=== PATIENT | female | born 1935 | race African-American/Black ===

== ENCOUNTER 2019-12-11 22:34 | Inpatient (IN) | payer MEDICARE, BC ==
[~2019-12-11] VITALS: Ht 170.2 cm; Wt 90.7 kg
[2019-12-11 22:10] VITALS: BP 148/78
[~2019-12-11 22:34] MED LIST: ASPI-1497 PO; ATEN50TA PO; ATOR20TA MT; AZOPT EACHEYE; CELE100C PO; CETI-114 PO; COMBIGAN EACHEYE; LORA10TA7 PO; MIRA50TA MT; MOME13HF2 INH; SERT50TA MT; XALAO EACHEYE
[2019-12-11 23:00] VITALS: BP 148/73
[2019-12-11] MEDS ORDERED: MORPHINE SULFATE 2 MG/ML CPJ (NOT FOR IM USE) IV PRN (23:30)
[2019-12-11] MEDS ORDERED: IPRATROPIUM/ALBUTEROL 0.5-3(2.5)MG/3ML NEB HHN PRN (23:30)
[2019-12-11] MEDS ORDERED: ACETAMINOPHEN 325MG TABLET PO PRN (23:30)
[2019-12-11] MEDS ORDERED: ONDANSETRON HCL 4MG/2ML INJ IV PRN (23:30)
[2019-12-11] MEDS ORDERED: DOCUSATE SODIUM 250MG CAPSULE PO PRN (23:30)
[2019-12-11] MEDS ORDERED: NICARDIPINE 100 MG in SODIUM CHLORIDE 0.9% 60 ML IV PRN (23:30)
[2019-12-11] MEDS ORDERED: MAGNESIUM/ALUMINUM HYDROXIDE/SIMETHICONE 30ML UDC PO PRN (23:30)
[2019-12-11] MEDS ORDERED: DIPHENHYDRAMINE 50MG/ML VIAL IV PRN (23:30)
[2019-12-11] MEDS ORDERED: CLONIDINE 0.1MG TABLET PO PRN (23:30)
[2019-12-12] MEDS: IPRATROPIUM/ALBUTEROL 0.5-3(2.5)MG/3ML NEB HHN SCH ×3 (07:27→20:32)
[2019-12-12] MEDS: HYDRALAZINE HCL 25MG TABLET PO SCH ×3 (08:00→21:28)
[2019-12-12 08:11] VITALS: BP 153/84
[2019-12-12] MEDS: LABETALOL HCL 200MG TABLET PO SCH ×2 (08:37→21:27)
[2019-12-12] MEDS: AMLODIPINE 10MG TABLET PO SCH (08:38)
[2019-12-12] MEDS ORDERED: HYDROCODONE/ACETAMINOPHEN 5/325MG TABLET PO PRN (14:15)
[2019-12-12] MEDS ORDERED: NA PHOS,M-B/NA PHOS,DI-BA ENEMA 118ML PR PRN (14:15)
[2019-12-12] MEDS ORDERED: BISACODYL 5MG TABLET PO PRN (14:15)
[2019-12-12] MEDS: DOCUSATE SODIUM 100MG CAPSULE PO SCH (17:07)
[2019-12-12 20:00] VITALS: BP 154/74
[2019-12-12] MEDS: ATORVASTATIN CALCIUM 20MG TABLET PO SCH (21:27)
[2019-12-13] MEDS: IPRATROPIUM/ALBUTEROL 0.5-3(2.5)MG/3ML NEB HHN SCH ×4 (02:08→22:07)
[2019-12-13] MEDS: HYDRALAZINE HCL 25MG TABLET PO SCH ×3 (06:10→21:12)
[2019-12-13 06:46] LABS: HEMATOCRIT. 36.3 % (36.0-48.0); HEMOGLOBIN. 12.4 g/dL (12.0-16.0); MEAN CORPUSCULAR HEMOGLOBIN 29.5 pg (28.0-32.0); MEAN CORPUSCULAR VOLUME 86.3 fL (81.0-99.0); MEAN PLATELET VOLUME 9.4 fl (7.4-10.4); PLATELET 198 x1000/uL (130-400); RED CELL DISTRIBUTION WIDTH 15.5 % (11.6-14.6)
[2019-12-13 06:59] LABS: CHLORIDE 103 mEq/L (98-107)
[2019-12-13 08:10] VITALS: BP 154/82
[2019-12-13] MEDS: DOCUSATE SODIUM 100MG CAPSULE PO SCH ×2 (08:38→16:28)
[2019-12-13] MEDS: LABETALOL HCL 200MG TABLET PO SCH ×2 (08:38→21:12)
[2019-12-13] MEDS: AMLODIPINE 10MG TABLET PO SCH (08:39)
[2019-12-13 13:32] LABS: PLATELET ESTIMATE NORMAL
[2019-12-13 20:00] VITALS: BP 151/59
[2019-12-13] MEDS: ACETAMINOPHEN 325MG TABLET PO PRN (20:16)
[2019-12-13] MEDS: ATORVASTATIN CALCIUM 20MG TABLET PO SCH (21:12)
[2019-12-14 01:24] LABS: CLARITY URINE CLOUDY (CLEAR); COLOR URINE YELLOW (YELLOW); KETONES URINE NEGATIVE (NEGATIVE); LEUKOCYTE ESTERASE URINE TRACE (NEGATIVE); NITRITE URINE NEGATIVE (NEGATIVE); OCCULT BLOOD URINE NEGATIVE (NEGATIVE); PH URINE 5.5 (4.5-8.0); PROTEIN URINE TRACE (NEGATIVE); SPECIFIC GRAVITY URINE 1.012 (1.005-1.030); UROBILINOGEN URINE 0.2 E.U./dL (0.2-1.0)
[2019-12-14] MEDS: IPRATROPIUM/ALBUTEROL 0.5-3(2.5)MG/3ML NEB HHN SCH ×2 (04:49→21:00)
[2019-12-14] MEDS: HYDRALAZINE HCL 25MG TABLET PO SCH ×3 (05:42→21:11)
[2019-12-14] MEDS: ACETAMINOPHEN 325MG TABLET PO PRN ×2 (05:42→12:53)
[2019-12-14 08:00] VITALS: BP 160/97
[2019-12-14] MEDS: DOCUSATE SODIUM 100MG CAPSULE PO SCH ×2 (09:12→17:27)
[2019-12-14] MEDS: AMLODIPINE 10MG TABLET PO SCH (09:13)
[2019-12-14] MEDS: LABETALOL HCL 200MG TABLET PO SCH ×2 (09:13→21:11)
[2019-12-14] MEDS: NITROFURANTOIN 100MG M/M CAPSULE PO SCH ×2 (12:08→21:10)
[2019-12-14] MEDS ORDERED: BISACODYL 10MG SUPP PR PRN (15:00)
[2019-12-14] MEDS ORDERED: NA PHOS,M-B/NA PHOS,DI-BA ENEMA 118ML PR PRN (15:00)
[2019-12-14] MEDS ORDERED: TRAMADOL 50MG TABLET PO PRN (15:00)
[2019-12-14 20:00] VITALS: BP 150/90
[2019-12-14] MEDS: ATORVASTATIN CALCIUM 20MG TABLET PO SCH (21:10)
[2019-12-15] MEDS: IPRATROPIUM/ALBUTEROL 0.5-3(2.5)MG/3ML NEB HHN SCH ×4 (03:20→20:22)
[2019-12-15] MEDS: HYDRALAZINE HCL 25MG TABLET PO SCH ×3 (06:29→21:36)
[2019-12-15 07:22] LABS: BASOPHILS % 0.2 % (0.0-2.0); EOSINOPHILS % 3.2 % (0.0-5.0); HEMATOCRIT. 32.7 % (36.0-48.0); HEMOGLOBIN. 11.1 g/dL (12.0-16.0); LYMPHOCYTES % 8.8 % (20.0-50.0); MEAN CORPUSCULAR HEMOGLOBIN 29.4 pg (28.0-32.0); MEAN CORPUSCULAR VOLUME 86.5 fL (81.0-99.0); MEAN PLATELET VOLUME 8.7 fl (7.4-10.4); MONOCYTES % 8.6 % (2.0-8.0); NEUTROPHILS % 79.2 % (40.0-76.0); PLATELET 210 x1000/uL (130-400); RED BLOOD CELL COUNT 3.78 mill/uL (4.2-5.4); RED CELL DISTRIBUTION WIDTH 15.4 % (11.6-14.6)
[2019-12-15 07:48] LABS: CHLORIDE 106 mEq/L (98-107)
[2019-12-15 08:00] VITALS: BP 149/81
[2019-12-15] MEDS: LABETALOL HCL 200MG TABLET PO SCH ×2 (08:29→21:35)
[2019-12-15] MEDS: NITROFURANTOIN 100MG M/M CAPSULE PO SCH ×2 (08:29→21:35)
[2019-12-15] MEDS: AMLODIPINE 10MG TABLET PO SCH (08:30)
[2019-12-15] MEDS: DOCUSATE SODIUM 100MG CAPSULE PO SCH ×2 (08:30→16:43)
[2019-12-15 20:00] VITALS: BP 153/87
[2019-12-15] MEDS: GUAIFENESIN 600MG ER TABLET PO SCH (21:35)
[2019-12-15] MEDS: ATORVASTATIN CALCIUM 20MG TABLET PO SCH (21:36)
[2019-12-15] MEDS: ACETAMINOPHEN 325MG TABLET PO PRN (22:27)
[2019-12-16] MEDS: IPRATROPIUM/ALBUTEROL 0.5-3(2.5)MG/3ML NEB HHN SCH ×3 (01:36→19:56)
[2019-12-16] MEDS: HYDRALAZINE HCL 25MG TABLET PO SCH ×3 (05:54→22:43)
[2019-12-16 07:01] LABS: HEMATOCRIT. 36.3 % (36.0-48.0); MEAN CORPUSCULAR HEMOGLOBIN 28.6 pg (28.0-32.0); MEAN CORPUSCULAR VOLUME 86.8 fL (81.0-99.0); MEAN PLATELET VOLUME 8.7 fl (7.4-10.4); PLATELET 208 x1000/uL (130-400); RED BLOOD CELL COUNT 4.18 mill/uL (4.2-5.4)
[2019-12-16 08:15] VITALS: BP 167/85
[2019-12-16 08:20] VITALS: BP 167/85
[2019-12-16 08:22] LABS: CHLORIDE 104 mEq/L (98-107)
[2019-12-16] MEDS: GUAIFENESIN 600MG ER TABLET PO SCH ×2 (09:05→22:42)
[2019-12-16] MEDS: AMLODIPINE 10MG TABLET PO SCH (09:05)
[2019-12-16] MEDS: LABETALOL HCL 200MG TABLET PO SCH ×2 (09:05→22:44)
[2019-12-16] MEDS: DOCUSATE SODIUM 100MG CAPSULE PO SCH ×2 (09:05→17:36)
[2019-12-16] MEDS: NITROFURANTOIN 100MG M/M CAPSULE PO SCH ×2 (09:05→22:43)
[2019-12-16 09:46] LABS: PLATELET ESTIMATE NORMAL
[2019-12-16 13:04] VITALS: BP 151/91
[2019-12-16 20:00] VITALS: BP 154/89
[2019-12-16] MEDS: ATORVASTATIN CALCIUM 20MG TABLET PO SCH (22:42)
[2019-12-17] MEDS: IPRATROPIUM/ALBUTEROL 0.5-3(2.5)MG/3ML NEB HHN SCH ×4 (01:28→23:55)
[2019-12-17] MEDS: HYDRALAZINE HCL 25MG TABLET PO SCH ×3 (07:19→22:06)
[2019-12-17 08:00] VITALS: BP 160/80
[2019-12-17] MEDS: DOCUSATE SODIUM 100MG CAPSULE PO SCH ×2 (09:26→16:58)
[2019-12-17] MEDS: NITROFURANTOIN 100MG M/M CAPSULE PO SCH ×2 (09:26→22:06)
[2019-12-17] MEDS: AMLODIPINE 10MG TABLET PO SCH (09:26)
[2019-12-17] MEDS: GUAIFENESIN 600MG ER TABLET PO SCH ×2 (09:26→22:05)
[2019-12-17] MEDS: LABETALOL HCL 200MG TABLET PO SCH ×2 (09:26→22:06)
[2019-12-17 11:37] VITALS: BP 147/91
[2019-12-17] MEDS: ACETAMINOPHEN 325MG TABLET PO PRN (11:41)
[2019-12-17] MEDS: PREDNISONE 20MG TABLET PO SCH (16:59)
[2019-12-17 20:00] VITALS: BP 149/78
[2019-12-17] MEDS: BUDESONIDE 0.5MG/2ML NEB HHN SCH ×3 (20:43→23:55)
[2019-12-17] MEDS: ATORVASTATIN CALCIUM 20MG TABLET PO SCH (22:05)
[2019-12-18] MEDS: HYDRALAZINE HCL 25MG TABLET PO SCH ×3 (06:37→21:28)
[2019-12-18 08:00] VITALS: BP 160/110
[2019-12-18] MEDS: BUDESONIDE 0.5MG/2ML NEB HHN SCH (08:10)
[2019-12-18] MEDS: IPRATROPIUM/ALBUTEROL 0.5-3(2.5)MG/3ML NEB HHN SCH ×3 (08:10→20:50)
[2019-12-18] MEDS: GUAIFENESIN 600MG ER TABLET PO SCH ×2 (09:57→21:24)
[2019-12-18] MEDS: AMLODIPINE 10MG TABLET PO SCH (09:57)
[2019-12-18] MEDS: DOCUSATE SODIUM 100MG CAPSULE PO SCH ×3 (09:57→18:21)
[2019-12-18] MEDS: LABETALOL HCL 200MG TABLET PO SCH ×2 (09:57→21:27)
[2019-12-18] MEDS: NITROFURANTOIN 100MG M/M CAPSULE PO SCH ×2 (09:58→21:23)
[2019-12-18] MEDS: PREDNISONE 20MG TABLET PO SCH ×2 (09:58→18:21)
[2019-12-18 20:00] VITALS: BP 150/75
[2019-12-18] MEDS: LACTULOSE 20G/30ML UDC PO PRN (21:24)
[2019-12-18] MEDS: ATORVASTATIN CALCIUM 20MG TABLET PO SCH (21:24)
[2019-12-19] MEDS: IPRATROPIUM/ALBUTEROL 0.5-3(2.5)MG/3ML NEB HHN SCH ×4 (02:23→22:12)
[2019-12-19] MEDS: HYDRALAZINE HCL 25MG TABLET PO SCH ×3 (06:04→21:36)
[2019-12-19 06:53] LABS: CHLORIDE 106 mEq/L (98-107)
[2019-12-19 07:02] LABS: HEMATOCRIT. 32.6 % (36.0-48.0); HEMOGLOBIN. 11.1 g/dL (12.0-16.0); MEAN CORPUSCULAR HEMOGLOBIN 29.4 pg (28.0-32.0); MEAN CORPUSCULAR VOLUME 86.2 fL (81.0-99.0); MEAN PLATELET VOLUME 8.4 fl (7.4-10.4); PLATELET 213 x1000/uL (130-400); RED BLOOD CELL COUNT 3.78 mill/uL (4.2-5.4); RED CELL DISTRIBUTION WIDTH 15.6 % (11.6-14.6)
[2019-12-19 07:34] LABS: PHOSPHORUS 4.5 mg/dL (2.5-4.9)
[2019-12-19] MEDS: BUDESONIDE 0.5MG/2ML NEB HHN SCH ×2 (07:54→20:00)
[2019-12-19 08:00] VITALS: BP 152/86
[2019-12-19] MEDS: LABETALOL HCL 200MG TABLET PO SCH ×2 (09:08→20:39)
[2019-12-19] MEDS: AMLODIPINE 10MG TABLET PO SCH (09:08)
[2019-12-19] MEDS: DOCUSATE SODIUM 100MG CAPSULE PO SCH ×2 (09:08→17:18)
[2019-12-19] MEDS: NITROFURANTOIN 100MG M/M CAPSULE PO SCH ×2 (09:08→20:39)
[2019-12-19] MEDS: GUAIFENESIN 600MG ER TABLET PO SCH ×2 (09:09→20:39)
[2019-12-19] MEDS: PREDNISONE 20MG TABLET PO SCH ×2 (09:09→17:18)
[2019-12-19 11:54] LABS: PLATELET ESTIMATE NORMAL
[2019-12-19 12:55] VITALS: BP 151/85
[2019-12-19] MEDS ORDERED: LACTULOSE 20G/30ML UDC PO NR (18:45)
[2019-12-19 20:00] VITALS: BP 157/77
[2019-12-19] MEDS: ATORVASTATIN CALCIUM 20MG TABLET PO SCH (20:39)
[2019-12-20] MEDS: IPRATROPIUM/ALBUTEROL 0.5-3(2.5)MG/3ML NEB HHN SCH ×2 (02:00→20:18)
[2019-12-20] MEDS: HYDRALAZINE HCL 25MG TABLET PO SCH ×3 (05:05→21:59)
[2019-12-20 06:13] VITALS: BP 156/63
[2019-12-20] MEDS ORDERED: TRAMADOL 50MG TABLET PO PRN (08:00)
[2019-12-20] MEDS: LABETALOL HCL 200MG TABLET PO SCH ×2 (09:24→20:52)
[2019-12-20] MEDS: PREDNISONE 20MG TABLET PO SCH ×2 (09:24→17:39)
[2019-12-20] MEDS: DOCUSATE SODIUM 100MG CAPSULE PO SCH ×2 (09:24→17:00)
[2019-12-20] MEDS: NITROFURANTOIN 100MG M/M CAPSULE PO SCH ×2 (09:25→20:52)
[2019-12-20] MEDS: AMLODIPINE 10MG TABLET PO SCH (09:25)
[2019-12-20] MEDS: GUAIFENESIN 600MG ER TABLET PO SCH ×2 (09:25→20:51)
[2019-12-20 20:00] VITALS: BP 139/80
[2019-12-20] MEDS: BUDESONIDE 0.5MG/2ML NEB HHN SCH (20:16)
[2019-12-20] MEDS: ATORVASTATIN CALCIUM 20MG TABLET PO SCH (20:51)
[2019-12-21] MEDS: IPRATROPIUM/ALBUTEROL 0.5-3(2.5)MG/3ML NEB HHN SCH ×3 (01:45→12:08)
[2019-12-21] MEDS: GUAIFENESIN 200MG/10ML SUGAR FREE UDC PO PRN ×2 (05:46→22:12)
[2019-12-21] MEDS: HYDRALAZINE HCL 25MG TABLET PO SCH ×3 (05:46→22:14)
[2019-12-21 06:30] LABS: HEMATOCRIT. 33.5 % (36.0-48.0); HEMOGLOBIN. 11.1 g/dL (12.0-16.0); MEAN CORPUSCULAR HEMOGLOBIN 28.4 pg (28.0-32.0); MEAN CORPUSCULAR VOLUME 85.7 fL (81.0-99.0); MEAN PLATELET VOLUME 7.7 fl (7.4-10.4); PLATELET 236 x1000/uL (130-400); RED BLOOD CELL COUNT 3.91 mill/uL (4.2-5.4); RED CELL DISTRIBUTION WIDTH 15.7 % (11.6-14.6)
[2019-12-21 06:42] LABS: CHLORIDE 106 mEq/L (98-107)
[2019-12-21 08:00] VITALS: BP 157/91
[2019-12-21] MEDS: BUDESONIDE 0.5MG/2ML NEB HHN SCH (08:05)
[2019-12-21] MEDS: GUAIFENESIN 600MG ER TABLET PO SCH ×2 (08:38→20:34)
[2019-12-21] MEDS: LABETALOL HCL 200MG TABLET PO SCH ×2 (08:39→20:35)
[2019-12-21] MEDS: DOCUSATE SODIUM 100MG CAPSULE PO SCH ×2 (08:39→17:00)
[2019-12-21] MEDS: AMLODIPINE 10MG TABLET PO SCH (08:39)
[2019-12-21 10:55] LABS: PLATELET ESTIMATE NORMAL
[2019-12-21 20:00] VITALS: BP 140/68
[2019-12-21] MEDS: ATORVASTATIN CALCIUM 20MG TABLET PO SCH (20:34)
[2019-12-22] MEDS: IPRATROPIUM/ALBUTEROL 0.5-3(2.5)MG/3ML NEB HHN SCH ×4 (03:16→21:03)
[2019-12-22] MEDS: GUAIFENESIN 200MG/10ML SUGAR FREE UDC PO PRN (05:20)
[2019-12-22] MEDS: HYDRALAZINE HCL 25MG TABLET PO SCH ×3 (05:21→22:00)
[2019-12-22] MEDS: BUDESONIDE 0.5MG/2ML NEB HHN SCH ×2 (07:52→21:03)
[2019-12-22 08:30] VITALS: BP 111/63
[2019-12-22] MEDS: DOCUSATE SODIUM 100MG CAPSULE PO SCH ×2 (08:50→17:00)
[2019-12-22] MEDS: GUAIFENESIN 600MG ER TABLET PO SCH ×2 (08:51→21:59)
[2019-12-22] MEDS: AMLODIPINE 10MG TABLET PO SCH (08:59)
[2019-12-22] MEDS: LABETALOL HCL 200MG TABLET PO SCH ×2 (08:59→21:59)
[2019-12-22 14:27] VITALS: BP 124/71
[2019-12-22 20:00] VITALS: BP 143/70
[2019-12-22] MEDS: ATORVASTATIN CALCIUM 20MG TABLET PO SCH (21:59)
[2019-12-23] MEDS: IPRATROPIUM/ALBUTEROL 0.5-3(2.5)MG/3ML NEB HHN SCH ×4 (02:26→22:06)
[2019-12-23] MEDS: HYDRALAZINE HCL 25MG TABLET PO SCH ×3 (06:00→21:26)
[2019-12-23 06:51] LABS: BASOPHILS % 0.1 % (0.0-2.0); EOSINOPHILS % 1.6 % (0.0-5.0); HEMATOCRIT. 34.6 % (36.0-48.0); HEMOGLOBIN. 11.5 g/dL (12.0-16.0); LYMPHOCYTES % 15.4 % (20.0-50.0); MEAN CORPUSCULAR HEMOGLOBIN 28.6 pg (28.0-32.0); MEAN CORPUSCULAR VOLUME 86.5 fL (81.0-99.0); MEAN PLATELET VOLUME 8.2 fl (7.4-10.4); MONOCYTES % 9.4 % (2.0-8.0); NEUTROPHILS % 73.5 % (40.0-76.0); PLATELET 243 x1000/uL (130-400); RED BLOOD CELL COUNT 4.01 mill/uL (4.2-5.4); RED CELL DISTRIBUTION WIDTH 15.8 % (11.6-14.6)
[2019-12-23 07:06] LABS: CHLORIDE 106 mEq/L (98-107)
[2019-12-23] MEDS: BUDESONIDE 0.5MG/2ML NEB HHN SCH ×2 (07:29→22:06)
[2019-12-23 08:00] VITALS: BP 114/58
[2019-12-23] MEDS: AMLODIPINE 10MG TABLET PO SCH (08:45)
[2019-12-23] MEDS: LABETALOL HCL 200MG TABLET PO SCH ×2 (08:45→21:26)
[2019-12-23] MEDS: GUAIFENESIN 600MG ER TABLET PO SCH ×2 (08:45→21:26)
[2019-12-23] MEDS: DOCUSATE SODIUM 100MG CAPSULE PO SCH ×3 (14:10→16:50)
[2019-12-23 20:00] VITALS: BP 154/79
[2019-12-23] MEDS: ATORVASTATIN CALCIUM 20MG TABLET PO SCH (21:26)
[2019-12-24] MEDS: IPRATROPIUM/ALBUTEROL 0.5-3(2.5)MG/3ML NEB HHN SCH ×3 (02:37→21:30)
[2019-12-24] MEDS: HYDRALAZINE HCL 25MG TABLET PO SCH ×3 (06:25→21:36)
[2019-12-24] MEDS: BUDESONIDE 0.5MG/2ML NEB HHN SCH ×2 (07:18→21:30)
[2019-12-24 08:16] VITALS: BP 156/78
[2019-12-24] MEDS: DOCUSATE SODIUM 100MG CAPSULE PO SCH ×2 (08:56→16:43)
[2019-12-24] MEDS: LABETALOL HCL 200MG TABLET PO SCH ×2 (08:56→21:36)
[2019-12-24] MEDS: AMLODIPINE 10MG TABLET PO SCH (08:57)
[2019-12-24] MEDS: GUAIFENESIN 600MG ER TABLET PO SCH ×2 (08:57→21:36)
[2019-12-24] MEDS: PREDNISONE 20MG TABLET PO SCH (14:50)
[2019-12-24 20:00] VITALS: BP 145/74
[2019-12-24] MEDS: ATORVASTATIN CALCIUM 20MG TABLET PO SCH (21:36)
[2019-12-25] MEDS: IPRATROPIUM/ALBUTEROL 0.5-3(2.5)MG/3ML NEB HHN SCH ×4 (02:40→21:59)
[2019-12-25] MEDS: HYDRALAZINE HCL 25MG TABLET PO SCH ×3 (06:48→21:13)
[2019-12-25 08:00] VITALS: BP 137/86
[2019-12-25] MEDS: PREDNISONE 20MG TABLET PO SCH (08:40)
[2019-12-25] MEDS: LABETALOL HCL 200MG TABLET PO SCH ×2 (08:40→21:12)
[2019-12-25] MEDS: GUAIFENESIN 600MG ER TABLET PO SCH ×2 (08:40→21:12)
[2019-12-25] MEDS: DOCUSATE SODIUM 100MG CAPSULE PO SCH ×2 (08:40→16:21)
[2019-12-25] MEDS: AMLODIPINE 10MG TABLET PO SCH (08:40)
[2019-12-25] MEDS: BUDESONIDE 0.5MG/2ML NEB HHN SCH ×3 (10:44→21:58)
[2019-12-25 20:00] VITALS: BP 147/90
[2019-12-25] MEDS: ATORVASTATIN CALCIUM 20MG TABLET PO SCH (21:12)
[2019-12-25] MEDS: LACTULOSE 20G/30ML UDC PO PRN (21:13)
[2019-12-26] MEDS: IPRATROPIUM/ALBUTEROL 0.5-3(2.5)MG/3ML NEB HHN SCH ×4 (01:35→20:32)
[2019-12-26] MEDS: HYDRALAZINE HCL 25MG TABLET PO SCH ×3 (05:53→21:13)
[2019-12-26] MEDS: BUDESONIDE 0.5MG/2ML NEB HHN SCH ×2 (07:29→07:53)
[2019-12-26 08:00] VITALS: BP 132/79
[2019-12-26] MEDS: PREDNISONE 20MG TABLET PO SCH (08:42)
[2019-12-26] MEDS: AMLODIPINE 10MG TABLET PO SCH (08:42)
[2019-12-26] MEDS: LABETALOL HCL 200MG TABLET PO SCH ×2 (08:43→21:13)
[2019-12-26] MEDS: DOCUSATE SODIUM 100MG CAPSULE PO SCH ×2 (08:43→16:23)
[2019-12-26] MEDS: GUAIFENESIN 600MG ER TABLET PO SCH ×2 (08:43→21:13)
[2019-12-26 20:00] VITALS: BP 148/74
[2019-12-26] MEDS: LACTULOSE 20G/30ML UDC PO PRN (21:12)
[2019-12-26] MEDS: ATORVASTATIN CALCIUM 20MG TABLET PO SCH (21:13)
[2019-12-27] MEDS: IPRATROPIUM/ALBUTEROL 0.5-3(2.5)MG/3ML NEB HHN SCH ×3 (01:49→14:09)
[2019-12-27] MEDS: HYDRALAZINE HCL 25MG TABLET PO SCH (06:05)
[2019-12-27 08:00] VITALS: BP 147/80
[2019-12-27] MEDS: PREDNISONE 20MG TABLET PO SCH (09:28)
[2019-12-27] MEDS: AMLODIPINE 10MG TABLET PO SCH (09:28)
[2019-12-27] MEDS: DOCUSATE SODIUM 100MG CAPSULE PO SCH (09:28)
[2019-12-27] MEDS: GUAIFENESIN 600MG ER TABLET PO SCH (09:28)
[2019-12-27] MEDS: LABETALOL HCL 200MG TABLET PO SCH (09:29)
[2019-12-27 11:38] VITALS: BP 147/80
== END 2019-12-27 13:57 | disposition home health service (06) | DRG 56 ==
PROVIDERS: ADMIT Psychiatry & Neurology Neurology; ATTEND Internal Medicine
DX: I69.354 Hemiplegia and hemiparesis following cerebral infarction affecting left non-dominant side (principal); I63.9 Cerebral infarction, unspecified; I61.9 Nontraumatic intracerebral hemorrhage, unspecified; I60.9 Nontraumatic subarachnoid hemorrhage, unspecified; I61.1 Nontraumatic intracerebral hemorrhage in hemisphere, cortical; N17.9 Acute kidney failure, unspecified; N39.0 Urinary tract infection, site not specified; E78.5 Hyperlipidemia, unspecified; I10 Essential (primary) hypertension; I70.1 Atherosclerosis of renal artery; I70.202 Unspecified atherosclerosis of native arteries of extremities, left leg; K59.00 Constipation, unspecified; L40.9 Psoriasis, unspecified; M17.10 Unilateral primary osteoarthritis, unspecified knee; N26.1 Atrophy of kidney (terminal); R13.10 Dysphagia, unspecified; Z85.118 Personal history of other malignant neoplasm of bronchus and lung; Z90.2 Acquired absence of lung [part of]
CPT/HCPCS: 36415; 73560; 80048; 80053; 81003; 83735; 84100; 85025; 87077; 87186; 92523; 92610; 94640; 97110; 97112; 97116; 97150; 97162; 97166; 97530; 97535; J7512; J7626

== ENCOUNTER 2020-05-06 17:27 | Inpatient (IN) | payer MEDICARE, BC ==
[~2020-05-06] VITALS: Ht 165.1 cm; Wt 78.9 kg
[2020-05-06 18:40] LABS: CHLORIDE 108 mEq/L (98-107)
[2020-05-06 18:48] LABS: BASOPHILS % 0.9 % (0.0-2.0); EOSINOPHILS % 7.3 % (0.0-5.0); HEMATOCRIT. 37.8 % (36.0-48.0); HEMOGLOBIN. 12.4 g/dL (12.0-16.0); LYMPHOCYTES % 15.1 % (20.0-50.0); MEAN CORPUSCULAR HEMOGLOBIN 27.1 pg (28.0-32.0); MEAN CORPUSCULAR VOLUME 82.4 fL (81.0-99.0); MEAN PLATELET VOLUME 8.3 fl (7.4-10.4); NEUTROPHILS % 70.7 % (40.0-76.0); PLATELET 332 x1000/uL (130-400); RED BLOOD CELL COUNT 4.58 mill/uL (4.2-5.4); RED CELL DISTRIBUTION WIDTH 22.5 % (11.6-14.6)
[2020-05-06 19:09] LABS: PROTHROMBIN TIME 10.9 sec (9.6-11.0)
[2020-05-06 19:26] LABS: PLATELET ESTIMATE NORMAL
[2020-05-06] MEDS ORDERED: LEVETIRACETAM 500MG PREMIX 100 ML IV ONE (19:30)
[2020-05-06] MEDS ORDERED: LORAZEPAM 2MG/ML CPJ ONE (19:31)
[2020-05-06 20:46] LABS: ETHANOL BLOOD < 10 mg/dL
[2020-05-06 20:52] LABS: CREATINE KINASE 55 IU/L (26-192)
[2020-05-06] MEDS ORDERED: LORAZEPAM 2MG/ML CPJ IV PRN (22:45)
[2020-05-06] MEDS ORDERED: ONDANSETRON HCL 4MG/2ML INJ IV PRN (22:45)
[2020-05-06] MEDS ORDERED: CLONIDINE 0.1MG TABLET PO PRN (22:45)
[2020-05-06] MEDS ORDERED: ACETAMINOPHEN 325MG TABLET PO PRN (22:45)
[2020-05-06] MEDS ORDERED: DOCUSATE SODIUM 100MG CAPSULE PO PRN (22:45)
[2020-05-06] MEDS ORDERED: MAGNESIUM/ALUMINUM HYDROXIDE/SIMETHICONE 30ML UDC PO PRN (22:45)
[2020-05-06 23:00] VITALS: BP 121/99
[2020-05-07] MEDS: SODIUM CHLORIDE 0.45% 1,000 ML IV SCH ×2 (00:19→17:16)
[2020-05-07 04:00] VITALS: BP 122/83
[2020-05-07 07:08] LABS: BASOPHILS % 0.7 % (0.0-2.0); EOSINOPHILS % 5.4 % (0.0-5.0); HEMATOCRIT. 31.6 % (36.0-48.0); HEMOGLOBIN. 10.8 g/dL (12.0-16.0); LYMPHOCYTES % 13.9 % (20.0-50.0); MEAN CORPUSCULAR HEMOGLOBIN 27.2 pg (28.0-32.0); MONOCYTES % 9.5 % (2.0-8.0); NEUTROPHILS % 70.5 % (40.0-76.0); PLATELET 279 x1000/uL (130-400); RED BLOOD CELL COUNT 3.95 mill/uL (4.2-5.4); RED CELL DISTRIBUTION WIDTH 22.7 % (11.6-14.6)
[2020-05-07 07:22] LABS: CHLORIDE 110 mEq/L (98-107)
[2020-05-07 07:59] VITALS: BP 147/78
[2020-05-07] MEDS ORDERED: LEVETIRACETAM 500 MG in SODIUM CHLORIDE 0.9% 100 ML IV SCH (08:15)
[2020-05-07] MEDS: LEVETIRACETAM 500MG PREMIX 100 ML IV SCH ×2 (09:31→21:05)
[2020-05-07] MEDS: LORATADINE 10MG TABLET PO SCH (11:39)
[2020-05-07] MEDS: SERTRALINE HCL 50MG TABLET PO SCH (11:39)
[2020-05-07] MEDS: ATENOLOL 50 MG TABLET PO SCH ×2 (11:40→21:05)
[2020-05-07] MEDS: ASPIRIN 81MG EC TABLET PO SCH (11:40)
[2020-05-07 12:24] VITALS: BP 147/77
[2020-05-07 16:30] VITALS: BP 107/80
[2020-05-07] MEDS: CELECOXIB 100MG CAPSULE PO SCH (17:16)
[2020-05-07 20:16] VITALS: BP 148/70
[2020-05-07] MEDS ORDERED: LATANOPROST 0.005% OPHTH DROPS 2.5ML EACHEYE SCH (21:00)
[2020-05-07] MEDS ORDERED: ATORVASTATIN CALCIUM 20MG TABLET PO SCH (21:00)
[2020-05-08 00:36] VITALS: BP 103/73
[2020-05-08 04:00] VITALS: BP 151/80
[2020-05-08 08:19] VITALS: BP 151/59
[2020-05-08] MEDS ORDERED: CETIRIZINE 10MG TABLET PO SCH (09:00)
[2020-05-08 09:12] LABS: VITAMIN B12 SERUM 792 pg/mL (211-911)
[2020-05-08] MEDS: LORATADINE 10MG TABLET PO SCH (09:39)
[2020-05-08] MEDS: LEVETIRACETAM 500MG PREMIX 100 ML IV SCH (09:39)
[2020-05-08] MEDS: ASPIRIN 81MG EC TABLET PO SCH (09:39)
[2020-05-08] MEDS: CELECOXIB 100MG CAPSULE PO SCH (09:40)
[2020-05-08] MEDS: SODIUM CHLORIDE 0.45% 1,000 ML IV SCH (09:40)
[2020-05-08] MEDS: SERTRALINE HCL 50MG TABLET PO SCH (09:40)
[2020-05-08] MEDS: ATENOLOL 50 MG TABLET PO SCH (09:40)
[2020-05-08 11:47] VITALS: BP 137/77
[2020-05-08 15:15] VITALS: BP 137/77
[2020-05-08 15:50] VITALS: BP 149/62
== END 2020-05-08 16:35 | disposition home health service (06) | DRG 74 ==
LOC: ER 17:27 → ENRESERV 21:48 → 6WST 22:55
PROVIDERS: ADMIT Hospitalist; ATTEND Hospitalist
PROC: 4A00X4Z Measurement of Central Nervous Electrical Activity, External Approach (ICD-10-PCS; principal; 2020-05-08)
DX: G90.8 Other disorders of autonomic nervous system (principal); E44.1 Mild protein-calorie malnutrition; G93.40 Encephalopathy, unspecified; I10 Essential (primary) hypertension; E78.5 Hyperlipidemia, unspecified; E78.00 Pure hypercholesterolemia, unspecified; Z96.649 Presence of unspecified artificial hip joint; G93.89 Other specified disorders of brain; R62.7 Adult failure to thrive; I73.9 Peripheral vascular disease, unspecified; M13.869 Other specified arthritis, unspecified knee; L40.9 Psoriasis, unspecified; Z86.73 Personal history of transient ischemic attack (TIA), and cerebral infarction without residual deficits; Z85.118 Personal history of other malignant neoplasm of bronchus and lung; Z90.2 Acquired absence of lung [part of]; Z90.710 Acquired absence of both cervix and uterus; Z68.29 Body mass index [BMI] 29.0-29.9, adult; Z79.01 Long term (current) use of anticoagulants; Z79.82 Long term (current) use of aspirin; Z79.899 Other long term (current) drug therapy
CPT/HCPCS: 36415; 70551; 71045; 80053; 80320; 82140; 82550; 82607; 82962; 83605; 83880; 84443; 84484; 85025; 93005; 93970; 95816; 97162; 99285; J1953; J2060; G0480